=== PATIENT | female | born 1950 | race African-American/Black ===

== ENCOUNTER → 2017-03-13 | Outpatient (CLI) | payer OTHER ==
[~2017-03-13] VITALS: Ht 165.1 cm; Wt 84.4 kg
[~2017-03-13] MED LIST: ALBUTEROL2.5 MG/31 INH; AMARYL2 MG PO; ASPIRIN81 M2 PO; ATORVASTATIN CA40 MG PO; BREO ELLIPTA 11 EACH INH; CARDIZEM CD180 MG PO; CHLORZOXAZONE500 MG PO; CLARITIN10 M2 PO; DIFLUCAN200 MG PO; DOXYCYCLINE 10100 MG PO; ELIQUIS5 MG PO; FAMOTIDINE40 MG PO; FOLIC ACID1 MG PO; KLOR-CON 1010 MEQ PO; LASIX 20 MG TAB20 MG PO; NORCO 10-325 T1 EACH PO; OMEPRAZOLE40 MG PO; ONDANSETRON HCL4 M2 PO; PREDNISONE 10 M10 MG PO; SORINE 80 MG TA80 M1 PO; TESSALON PERLE100 MG PO; VITAMIN B-12500 MCG PO
--- NOTE | ~2017-03-13 | HPC ---
[facility] [place] [address] PAIN MANAGEMENT CONSULTATION Name: ALEJANDRA WILLIAM Room #: REG BRIDGET Regan.Jay.#: [id number] Admission: 03/13/17 Attend Phys: Adelaida Samuel MD Discharge: Date of : 48 Report #: [id number] THIS REPORT FOR: //name// CC: Sarah Samuel DATE OF SERVICE: 03/13/2017 CHIEF COMPLAINT: "Pain when walking down in my legs." HISTORY OF PRESENT ILLNESS: The patient is a 66-year-old black female who has been referred to the pain clinic for evaluation of back and leg pain. The patient has had pain and discomfort, which has been problematic over the last 2 years. She has had bilateral knee surgeries. Her right knee became infected. Her left hip became infected and she has been having pain and discomfort which she rates as a 7/10 at this juncture. She sometimes notes that her pain is problematic even while she is in bed. She notes that the pain is worse, particularly when she is walking. She does not have a knee cap on the left side. She has used pain pills, which have been somewhat helpful in the past. She describes it as rhythmic, aching and stabbing discomfort. She has been using Eliquis for about 6 months. She has had the onset of atrial fibrillation, which is the reason for the use of Eliquis. ALLERGIES: SULFA. MEDICATIONS: Diflucan 200 mg for bladder infection, folic acid 1 mg, Breo Ellipta 100/25 inhalation daily, vitamin B12, Claritin 10 mg, Tessalon Perles 100 mg t.i.d. as needed for cough, AccuNeb 2.5/3 mL q. 6 hours inhalation p.r.n., Zofran 4 mg, Amaryl 2 mg, Lipitor 40 mg at bedtime, sotalol 80 mg b.i.d., Eliquis 5 mg b.i.d., omeprazole 40 mg, aspirin 81 mg, doxycycline 100 mg, potassium 10 mEq, prednisone 10 mg, Chlorzoxazone 500 mg at bedtime, Lasix 20 mg, Cardizem 180 mg, famotidine 40 mg, and hydrochlorothiazide 10/325 q. 4-6h. p.r.n. 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 SOCIAL HISTORY: The patient states that she used to work in [employer]. She is not working at this juncture. She has a 47-year history of use of tobacco, 2 packs per week. Denies use of alcohol. Denies use of illegal drugs. PAST SURGICAL HISTORY: Hysterectomy approximately in 2009; oophorectomy; [place] [address] PAIN MANAGEMENT CONSULTATION Name: ALEJANDRA WILLIAM Room #: REG CLMadhu Weiner#: [id number] Admission: 03/13/17 Attend Phys: Adelaida Samuel MD Discharge: Date of : 48 Report #: [id number] diverticulitis; left knee approximately 28 years ago, no kneecap at this juncture; had a second surgery on the left knee; right knee surgery in , a needle was left in this area and the patient had another surgery after that to remove the needle; right hip infection in 1997. PHYSICAL EXAMINATION: VITAL SIGNS: Blood pressure 180/92, pulse 57, respiratory rate 18, room air saturation is 98%. Height 5 feet 5 inches, weight 186 pounds, BMI is 31. GENERAL: The patient is a black female. She is appropriately nervous. Does walk with a very antalgic gait, uses a crutch for ambulation. Appears her stated age. Orientation, alert and oriented. Affect appears appropriate. HEENT: Head is atraumatic. Ears and eye muscles are intact. Buccal mucosa is dry. The patient appears to have dentures. No bruits or masses in the neck. LUNG: Clear to auscultation. HEART: Regular rate. ABDOMEN: Soft, nontender. MUSCULOSKELETAL: Spine appears normal alignment. No kyphosis or overt scoliosis noted. Gait is antalgic, walks with use of her crutches. Lumbar flexion and extension somewhat problematic given the patient's knees and use of her crutches. Left and right rotation limited, lateral bending difficult given the patient's use of cane/crutches. NEUROLOGIC: Upper extremity is generally within normal limits. It is judged to be 5/5 for the major muscle groups. Sensation in the lower extremities, muscle strength of the lower extremities is judged to be 4/5 for the major muscle groups of the lower extremities. The patient has a number of significant scars on the left as well as the right knee area. There is a grinding sensation in the left knee. There is lack of a patella. The right knee is reasonably cool to touch. Complains of some pain and discomfort radiating down into her leg. The pain is in the posterior portion of her leg. LABORATORY DATA: MRI of the lumbar spine dated 03/07/2017 reveals: 1. L1-L2 intervertebral disk facets and foramen appear normal. Thecal sac 1.2 cm AP. 2. L2-L3 moderate degenerative loss of disk height identified and moderate size circumferential disk bulge as well as bulky ligamentum flavum thickening and facet hypertrophy changes causing triangular cross sectional appearance of the thecal sac with narrowing of the lateral recesses. The left foramen is mildly narrowed and right foramen is moderately to severely narrowed. Thecal sac 0.8 cm AP. 3. L3-L4 [id number] degenerative disk space narrowing identified with small diffuse posterior disk bulge. Additional less well-defined low signal filling defect on the left lateral recess and adjacent portion of the left foramen is suspicious to represent a facet related osteophyte. This could represent disk material as a disk extrusion. The left lateral recess and left foramen are severely effaced. The right lateral recess and foramen are moderately effaced. The thecal sac is 0.[address] [address] PAIN MANAGEMENT CONSULTATION Name: ALEJANDRA WILLIAM Room #: REG REINIER Sona.#: [id number] Admission: 03/13/17 Attend Phys: Adelaida Samuel MD Discharge: Date of : 48 Report #: [id number] 4. L4-L5 mild degenerative loss of disk height identified with small diffuse posterior disk bulge. The ligamentum flavum thickening and facet degenerative hypertrophic changes cause triangular cross sectional appearance of the thecal sac. The narrow AP diameter and with effacement of the lateral recess. Both foramen are approximately mildly to moderately narrowed. Thecal sac 0.8 cm AP. 5. L5-S1 intervertebral disk, facet foramen appear normal. Thecal sac 1 cm AP. IMPRESSION: 1. Lumbar radicular pain with pain radiating down into the posterior portion of the L5-S1 distribution on the right and left. 2. Diabetes. 3. Hypertension. 4. Heart disease/atrial fibrillation treated with anticoagulation. 5. Kidney disease. 6. Colon problems. 7. Joint disease/arthritis and bilateral leg and knee pain. 8. History of stroke. 9. Pulmonary disease. RECOMMENDATIONS: We discussed the treatment options with the patient. Risks and benefits of an epidural steroid injection were discussed. Possible complications were reviewed. The patient has pain and discomfort in the lower portion of her back with pain radiating down into her legs in the L4-L5 and L5-S1 distribution. She would like to proceed with an epidural steroid injection. Risks and benefits of the procedure were discussed with the patient. It could include but not limited to infection, increased muscle soreness headache, bleeding. The patient will stop taking her Eliquis. She will return to the pain clinic after stopping her Eliquis; at which time, she will undergo an epidural steroid injection to help with her pain relief. She will call us if she has any questions. She will follow up in the near future. <ELECTRONICALLY SIGNED> By: Adelaida Samuel MD 04/05/17 1332 [id number] [id number] Adelaida Samuel MD /[facility]
[2017-03-13 14:26] VITALS: BP 180/92
== END ==
LOC: PAIN 07:01
DX: M54.16 Radiculopathy, lumbar region (principal); M51.26 Other intervertebral disc displacement, lumbar region; E11.9 Type 2 diabetes mellitus without complications; I10 Essential (primary) hypertension; I51.89 Other ill-defined heart diseases; I48.91 Unspecified atrial fibrillation; N28.89 Other specified disorders of kidney and ureter; K63.89 Other specified diseases of intestine; J98.4 Other disorders of lung; M17.0 Bilateral primary osteoarthritis of knee; Z96.653 Presence of artificial knee joint, bilateral; Z86.73 Personal history of transient ischemic attack (TIA), and cerebral infarction without residual deficits

== ENCOUNTER → 2017-03-20 | Outpatient (CLI) | payer OTHER ==
[~2017-03-20] VITALS: Ht 165.1 cm; Wt 83.9 kg
--- NOTE | ~2017-03-20 | HPC ---
[facility] [place] [address] PAIN MANAGEMENT CONSULTATION Name: ALEJANDRA WILLIAM Room #: REG BRIDGET Sona.#: [id number] Admission: 03/20/17 Attend Phys: Adelaida Samuel MD Discharge: Date of : 48 Report #: [id number] THIS REPORT FOR: //name// CC: Sarah Samuel DATE OF SERVICE: 03/20/2017 FOLLOWUP COMPLAINT: "Here for an injection. I have stopped taking my Eliquis a few days ago." FOLLOWUP HISTORY: The patient is a 66-year-old female who has been seen in the pain clinic because of lumbar radiculopathy. She was seen but still was taking her Eliquis. Since that time, she has stopped her Eliquis about 4 days ago. She has returned to the pain clinic for an injection. As you recall, she has pain and discomfort which is radiating down into both legs. She rates it as an 8/10. She continues to walk with use of her crutches. Notes that her pain is worse when she is standing, sometimes exacerbated by sitting. Engaging in activities of daily living can certainly increase her discomfort. She has not seen her MRI. She did bring the CD so that we can review this and educate her more regarding the pathology associated with her back pain. She would like to undergo an injection today. She has returned for that treatment. ALLERGIES: SULFA. CURRENT MEDICATIONS: Diflucan 200 mg for bladder infection, folic acid 1 mg, Breo Ellipta 100/325 inhaled daily, multivitamin B12, Claritin 10 mg, Tessalon Perles 100 mg t.i.d. p.r.n., cough, Accuneb 2.5/3 mL q. 6 hours inhalation p.r.n., Zofran 4 mg, Amaryl 2 mg, Lipitor 40 mg at bedtime, sotalol 80 mg b.i.d. The patient is not taking Eliquis. Apo-omeprazole 40 mg, aspirin 81 mg, doxycycline 100 mg, potassium 10 mEq, prednisone 10 mg, chlorzoxazone 500 mg at bedtime, Lasix 20 mg, Cardizem 180 mg, famotidine 40 mg, hydrochlorothiazide 10/325 q. 4 hours. PHYSICAL EXAMINATION: VITAL SIGNS: Blood pressure is 146/63, pulse is 60, respiratory rate 16, room air saturation 100%. Height 5 feet 5 inches, weight 186 pounds, BMI is 30. The patient has not fallen, but does walk with use of a cane/crutch. HEART: History of atrial fibrillation. LUNGS: Clear. ABDOMEN: Nontender. MUSCULOSKELETAL: The patient complains of pain and discomfort radiating down the posterior portion of her legs in the L5-S2 distribution of [place] [address] PAIN MANAGEMENT CONSULTATION Name: ALEJANDRA WILLIAM Room #: REG [facility].#: [id number] Admission: 03/20/17 Attend Phys: Adelaida Samuel MD Discharge: Date of : 48 Report #: [id number] IMPRESSION: 1. Lumbar radiculopathy with pain radiating down into the posterior portion of the L5-S1 distribution on the left and right leg. 2. Diabetes. 3. Hypertension. 4. Heart disease/history of atrial fibrillation treated with anticoagulation. The patient is not taking Eliquis over the last 3 days. 5. Kidney disease. 6. Colon problems. 7. Joint disease/arthritis and bilateral leg and knee pain. 8. History of stroke. 9. Pulmonary disease. RECOMMENDATIONS: We discussed treatment options with the patient. Her CD was placed in the computer. We then reviewed with her the findings of her MRI. She was able to note the pathology, which is somewhat significant. A model was used to indicate the appropriate anatomy. She would like to proceed with an epidural steroid injection. Risks and benefits of the procedure were again reviewed. They could include but are not limited to infection, increased muscle soreness, headache, bleeding, muscle soreness, nerve damage with prolonged weakness. The patient accepts the risks and would like to proceed. PROCEDURE NOTE: The patient was placed in the prone position. Fluoroscopy was used to identify the L5-S1 area. This area had been sterilely prepped, and the area was infiltrated with 0.25% bupivacaine with a 25-gauge needle after appropriate placement. A set 17-gauge Tuohy with loss of resistance technique was used to gain access to the epidural space. Fluoroscopy was used, using the anterior and lateral approach for appropriate needle placement. A total of 80 mg Depo-Medrol, 40 mg triamcinolone and 2 mL of 0.25% bupivacaine was injected. The patient tolerated the procedure well. A total of 8 seconds was used. The patient's pain decreased from 8 to 0 at the time of discharge. Her legs were stable. She will follow up in the future as needed. We would like to thank you for letting us participate in her care. We hope she continues to improve. <ELECTRONICALLY SIGNED> By: Adelaida Samuel MD 04/05/17 1332 [id number] [id number] Adelaida Samuel MD /PMT
[2017-03-20 12:37] VITALS: BP 146/63
== END | disposition home or self-care (01) ==
LOC: PAIN 07:08
DX: M54.16 Radiculopathy, lumbar region (principal); E11.9 Type 2 diabetes mellitus without complications; I10 Essential (primary) hypertension; I48.91 Unspecified atrial fibrillation; I51.9 Heart disease, unspecified; J98.4 Other disorders of lung; N28.9 Disorder of kidney and ureter, unspecified; K63.9 Disease of intestine, unspecified; M19.90 Unspecified osteoarthritis, unspecified site; Z86.73 Personal history of transient ischemic attack (TIA), and cerebral infarction without residual deficits; Z79.82 Long term (current) use of aspirin; Z79.899 Other long term (current) drug therapy; Z88.2 Allergy status to sulfonamides

== ENCOUNTER → 2017-04-19 | Outpatient (CLI) | payer OTHER ==
[~2017-04-19] VITALS: Ht 165.1 cm; Wt 84.3 kg
--- NOTE | ~2017-04-19 | HPC ---
[facility] [place] [address] PAIN MANAGEMENT CONSULTATION Name: ALEJANDRA WILLIAM Room #: REG BRIDGET Magallanes.#: [id number] Admission: 04/19/17 Attend Phys: Adelaida Samuel MD Discharge: Date of : 48 Report #: [id number] THIS REPORT FOR: //name// CC: ZAIRE Samuel DATE OF SERVICE: 04/19/2017 FOLLOWUP COMPLAINT: Pain in the back and down in the leg. HISTORY OF PRESENT ILLNESS: The patient is a 66-year-old female, who has been seen in the Pain Clinic because of lumbar radiculopathy. She has undergone epidural steroid injection and gleaned benefits from that. She returns today indicating that her pain continues to be problematic. She rates it as an 8/10. She is still having pain, which radiates down into the back of her right leg. She has stopped taking her Eliquis and has been off of it for 3 days. She has a history of back pain, greater than 2 years. She had a problem with left hip infection in the past. Notes that walking, standing and sitting can be problematic. She describes the pain as aching, stabbing and somewhat intermittent depending on her level of activity. Denies any new bowel or bladder dysfunction. Feels that there was benefit gleaned from the last injection and would like to proceed with another one today. ALLERGIES: SULFA. RENEWAL AND REVIEW OF MEDICATIONS: Indicate use of Diflucan 200 mg for bladder infection, folic acid 1 mg, Breo Ellipta 100/325 inhaled daily, multivitamin, B12, Claritin 10 mg, Tessalon Perles 100 mg t.i.d. p.r.n. cough, AccuNeb 2.5/3 mL q. 6 hours inhalation p.r.n., Zofran 4 mg, Amaryl 2 mg, Lipitor 40 mg at bedtime, sotalol 80 mg b.i.d. The patient has stopped taking her Eliquis, Apo-esomeprazole p.o. 40 mg, aspirin 81 mg, doxycycline 100 mg, potassium 10 mEq, prednisone 10 mg, chlorzoxazone 500 mg at bedtime, Lasix 20 mg, Cardizem 180 mg, famotidine 40 mg, hydrochlorothiazide 10/325 q. 4 hours. PAIN CLINIC ASSESSMENT: 1. Vital signs: Blood pressure 160/77, pulse 61, respiratory rate 16, room air saturation 94. 2. Height 5 feet 5 inches, weight 186 pounds, BMI is 30. 3. History of osteoarthritis. 4. Pain intensity 10/11. 5. Fall risk: The patient has not fallen. 6. Blood thinner: The patient is on Eliquis and has stopped this medication, we will resume it after the procedure 7. History of hypertension: The patient is being treated for hypertension. 8. Opioid greater than 6 weeks: The patient is not taking opioid medications greater than [address] [address] PAIN MANAGEMENT CONSULTATION Name: ALEJANDRA WILLIAM Room #: REG CLMadhu Weiner#: [id number] Admission: 04/19/17 Attend Phys: Adelaida Samuel MD Discharge: Date of : 48 Report #: [id number] 9. Risk assessment tool. 10. Functional assessment tool rated as 49/70 in regards to general activity, mood, walking, work, relationships with others, sleep and enjoyment of life. PHYSICAL EXAMINATION: GENERAL: The patient is a well-developed female. She does walk with use of a cane/crutch. Appears her stated age. ORIENTATION: The patient is alert and oriented x 3. AFFECT: The patient's affect appears appropriate. HEENT: The patient is normocephalic, atraumatic. Extraocular eye muscles intact. Hearing within normal limits. No nasal congestion or complaints. Moist buccal membranes. NECK: Without JVD or masses. LUNGS: Clear to auscultation. HEART: Regular rate. ABDOMEN: Nontender. MUSCULOSKELETAL: The patient has reasonably normal alignment. She does have some problems with her knees, which have significant scarring because of multiple surgeries on the left as well as the right knee and has an antalgic walk with use of a cane/crutch. Complains of pain and discomfort in the low back area with radiation down the L5-S1 distribution. IMPRESSION: 1. Lumbar radiculopathy with pain radiating down into the posterior portion of the L5-S1 distribution on the left and right leg. 2. Diabetes. 3. Hypertension. 4. Heart disease/history of atrial fibrillation, treated with anticoagulation. The patient has stopped taking her Eliquis 3 days ago. 5. Kidney disease. 6. Colon problems. 7. Joint disease/arthritis and bilateral knee and leg pain. 8. History of stroke. 9. History of pulmonary disease. RECOMMENDATIONS: We discussed treatment options with the patient. The patient has stopped taking her Eliquis. She would like to proceed with another epidural steroid injection. She felt that there was some improvement after the last injection. There were no complications. No worsening of pain. She continues to have pain that radiates down into her legs and feels that another injection could be helpful. There was no complication from the last injection. We again discussed the possible complication of the procedure, which could include but are not limited to infection, increased muscle soreness, headache, bleeding, nerve damage and prolonged weakness. The patient elects to proceed. PROCEDURE NOTE: The patient was taken to the examination area. She was helped [address] [address] PAIN MANAGEMENT CONSULTATION Name: ALEJANDRA WILLIAM Room #: REG [facility].#: [id number] Admission: 04/19/17 Attend Phys: Adelaida Samuel MD Discharge: Date of : 48 Report #: [id number] on the fluoroscopy table. After appropriate positioning, the L5-S1 area was identified. Use of a fluoroscopy technique using AP and lateral imaging and the target area was provided. This area had been sterilely prepped with Betadine and infiltrated with 0.25% bupivacaine. Total of 80 mg Depo-Medrol, 40 mg triamcinolone and 2 mL of 0.25% bupivacaine was injected. The patient tolerated the procedure well. There were no complications. A Band-Aid was placed in the appropriate site. There was no bleeding. The patient was then assisted to the recovery room, where she remained for an appropriate amount of time. She will follow up in the future as needed. A total of 9 seconds fluoroscopy time was used. We would like to thank you for letting us participate in her care. We hope she continues to improve. <ELECTRONICALLY SIGNED> By: Adelaida Samuel MD 05/15/17 1426 [id number] MD sri Aguero
[2017-04-19 09:49] VITALS: BP 160/77
== END ==
LOC: PAIN 07:21
DX: M54.16 Radiculopathy, lumbar region (principal); E11.9 Type 2 diabetes mellitus without complications; I10 Essential (primary) hypertension; N28.89 Other specified disorders of kidney and ureter; I48.91 Unspecified atrial fibrillation; M19.90 Unspecified osteoarthritis, unspecified site; Z86.73 Personal history of transient ischemic attack (TIA), and cerebral infarction without residual deficits; Z79.01 Long term (current) use of anticoagulants; Z88.2 Allergy status to sulfonamides; Z79.899 Other long term (current) drug therapy; Z79.891 Long term (current) use of opiate analgesic